=== PATIENT | male | born 1980 | race African-American/Black ===

== ENCOUNTER 2023-01-02 00:51 | Emergency (ER) | payer MEDICAID ==
[~2023-01-02] VITALS: Ht 172.7 cm; Wt 88.0 kg
[2023-01-02] MEDS ORDERED: FLUT9.9S BOTHNSTRLS (05:30)
[2023-01-02] MEDS ORDERED: AMOX-494 MT (05:30)
[2023-01-02 05:53] VITALS: BP 147/101
== END 2023-01-02 05:57 | disposition home or self-care (01) ==
LOC: ER 01:02
DX: J01.90 Acute sinusitis, unspecified (principal)
CPT/HCPCS: 99283